=== PATIENT | male | born 1985 | race Caucasian/White ===

== ENCOUNTER → 2020-03-28 10:17 | Outpatient (CLI) | payer MEDICAID, SELFPAY ==
[2015-08-06 19:43] VITALS: BMI 31.5
[2020-03-28 11:32] LABS: AST(SGOT) 25 U/L (15-37); Alanine Aminotransfer ALT/SGPT 63 U/L (16-61); Albumin, Serum 3.8 g/dL (3.2-5.0); Alkaline Phosphatase 107 U/L (45-117); Anion Gap 5 (5-15); BUN 8 mg/dL (7-18); BUN/Creat Ratio 7.1 RATIO (10-20); Calcium,Total 8.6 mg/dL (8.5-10.1); Chloride 108 mmol/L (98-107); Cholesterol 185 mg/dL (200); Creatinine, Serum 1.12 mg/dL (0.70-1.30); EST Glomerular Filtration Rate 79 mL/min (>60); Est Glom Filt Rate - Afr Amer 95 mL/min (>60); Globulin 3.8 g/dL (2.2-4.2); Glucose 97 mg/dL (74-106); High Density Lipoprotein 33 mg/dL; Potassium 4.1 mmol/L (3.5-5.1); Protein, Total 7.6 g/dL (6.4-8.2); Sodium Level 140 mmol/L (136-145); Triglycerides 248 mg/dL; Very Low Density Lipoprotein 50 mg/dL (5-40)
== END ==
PROVIDERS: PCP Family Medicine; Visit Provider Family Medicine
DX: E66.9 Obesity, unspecified (principal)
CPT/HCPCS: 36415; 80053; 80061

== ENCOUNTER → 2020-05-28 16:54 | Outpatient (CLI) | payer MEDICAID, SELFPAY ==
[2015-08-06 19:43] VITALS: BMI 31.5
[2020-05-28 17:34] LABS: Absolute Lymphocyte Count 2.74 X10^3/uL (0.83-4.51); Absolute Neutrophil Count 6.1 X10^3/uL (2.0-7.7); Basophil# 0.05 X10^3/uL; Basophil% 0.5 % (0-1); Hematocrit 50.2 % (40-54); Hemoglobin 16.3 g/dL (13.0-16.5); Lymphocyte # 2.74 X10^3/ul (4.0); Lymphocyte % 27.7 % (19-41); Mean Corp Hgb Conc 32.5 g/dL (32-36); Mean Corpuscular Hgb 29.9 pg (27.0-32.0); Mean Corpuscular Volume 92.1 fL (80-94); Mean Platelet Vol. 9.6 fl (6.2-12.0); Monocyte# 0.97 X10^3/uL; Monocyte% 9.8 % (0-10); NRBC Flagged by Analyzer 0 % (0-5); Neutrophil # 6.12 X10^3/uL (2.7-7.7); Neutrophil % 61.8 % (47-70); Platelet Count 307 K/mm3 (150-450); RBC Distribution Width CV 12.5 % (11.6-14.6); RBC Distribution Width SD 42.5 fl (35.1-43.9); Red Blood Count 5.45 M/mm3 (4.6-6.2); White Blood Count 9.9 K/mm3 (4.4-11.0)
[2020-05-28 18:17] LABS: Ferritin 302 ng/mL (26-388); Magnesium 2.4 mg/dL (1.6-2.6)
== END ==
PROVIDERS: PCP Family Medicine; Referring Provider Family Medicine; Visit Provider Family Medicine
DX: R25.2 Cramp and spasm (principal)
CPT/HCPCS: 36415; 82728; 83735; 85025

== ENCOUNTER 2021-05-09 03:48 | Emergency (ER) | payer MEDICAID, SELFPAY ==
[2021-05-09 03:50] VITALS: BP 146/103; PULSE 55; RESP 16; TEMP 36.5; O2SAT 100; BMI 34.6
[2021-05-09] MEDS: Morphine 4 MG/ML Syringe IV (04:24)
[2021-05-09] MEDS: Ondansetron 4 MG/2 ML Vial IV (04:24)
[2021-05-09] MEDS: 0.9% Normal Saline 1,000 ML 999 ML IV (04:24)
[2021-05-09 04:35] LABS: Absolute Lymphocyte Count 1.68 X10^3/uL (0.83-4.51); Absolute Neutrophil Count 10.3 X10^3/uL (2.0-7.7); Basophil# 0.03 X10^3/uL; Basophil% 0.2 % (0-1); Eosinophil# 0.01 X10^3/uL; Eosinophils% 0.1 % (0-5); Hematocrit 47.7 % (40-54); Hemoglobin 16.6 g/dL (13.0-16.5); Lymphocyte # 1.68 X10^3/ul (0.83-4.51); Lymphocyte % 12.9 % (19-41); Mean Corp Hgb Conc 34.8 g/dL (32-36); Mean Corpuscular Hgb 31.1 pg (27.0-32.0); Mean Corpuscular Volume 89.3 fL (80-94); Mean Platelet Vol. 9.6 fl (6.2-12.0); Monocyte# 0.91 X10^3/uL; NRBC Flagged by Analyzer 0 % (0-5); Neutrophil # 10.34 X10^3/uL (2.7-7.7); Neutrophil % 79.2 % (47-70); Platelet Count 309 K/mm3 (150-450); RBC Distribution Width CV 12.6 % (11.6-14.6); RBC Distribution Width SD 41.5 fl (35.1-43.9); Red Blood Count 5.34 M/mm3 (4.6-6.2); White Blood Count 13.1 K/mm3 (4.4-11.0)
--- NOTE | 2021-05-09 04:36 | EX.ED.DYSGE1 ---
HPI History of Present Illness Chief Complaint: Back Narrative Narrative: Patient is a 35-year-old male who states he will occasionally deal with back pain/spasm. He states he can typically take a muscle relaxer and will feel better. He reports that this evening he was sitting around and noticed some irritation around 9 PM for which he took some ibuprofen. He states despite doing this a few hours later he had severe cramping and spasm of his back. He reports the irritation was more right-sided and wrapped around towards his abdomen but he did feel it bilaterally. He denies any recent trauma or excessive activity. He denies any loss of bowel or bladder control or IV drug use. He states that as he cannot get the symptoms under control at home he presents to the ER for evaluation [facility] Medical History no medical history no medical history Home Medications cetirizine 10 mg PO DAILY 05/09/21 [History Last Taken Unknown] ondansetron 4 mg PO TID PRN PRN #21 tab 05/09/21 [Rx Last Taken Unknown] oxycodone-acetaminophen [Percocet] 1 tab PO Q6H PRN 3 Days #12 tab 05/09/21 [Rx Last Taken Unknown] Allergy/AdvReac Type Severity Reaction Status Date / Time No Known Allergies Allergy Verified 05/09/21 03:49 Social History Smoking Status: Current every day smoker tobacco type: cigarettes ROS ROS ED Constitutional Constitutional ED: Denies chills or fever(s) ENT ENT ED: Denies sore throat Cardiovascular Cardiovascular: Denies chest pain Respiratory/Chest Respiratory/Chest: Denies cough or dyspnea Gastrointestinal Gastrointestinal: Reports abdominal pain and nausea; Denies diarrhea or vomiting Genitourinary Genitourinary ED: Denies dysuria or hematuria Musculoskeletal Musculoskeletal: Reports back pain; Denies myalgias Integumentary Denies rash Neurologic Neurologic: Denies headache(s) Hematologic/Lymphatic Hematologic/Lymphatic: Denies easy bleeding or easy bruising EXAM Physical Exam Const Vital Signs: 05/09/21 03:50 Temperature 97.7 F L Temperature Source Oral Pulse Rate 55 L Respiratory Rate 16 Blood Pressure 146/103 H Blood Pressure Mean 117 Pulse Ox 100 Oxygen Delivery Method Room Air Positive well nourished and well developed General Appearance ED: well developed HEENT Reports dry mucous membranes Mouth ED: Yes dry mucous membranes Mouth: dry mucous membranes Eyes PERRL and EOMs intact bilaterally General Eye ED: Negative for scleral icterus Neck supple Resp normal respiratory effort and clear to auscultation bilaterally Cardio regular rate and regular rhythm Rate: other Other Details: Radial pulses are +2-4 bilaterally are equal and symmetric GI non-distended GI Narrative: Obese soft and nondistended with normoactive bowel sounds. There is pain with palpation in the right upper quadrant but negative Welch sign or voluntary guarding. No pulsatile mass Auscultation: normoactive bowel sounds Palpation: soft Back/Spine no CVA tenderness Back/Spine Narrative: No bony deformity or step-off of the thoracic or lumbar spine no midline pain with palpation. No saddle anesthesia. Negative straight leg raise. No clonus or Babinski. Patellar reflexes are +3-4 bilaterally Extremity normal to inspection Neuro oriented x3 and CN's II-XII intact bilaterally Sensorium / Orientation: alert Motor Exam: strength 5/5 throughout Psych mental status grossly normal Skin no rashes or lesions noted General Skin Exam: Negative for jaundice MDM MDM MDM Narrative Medical decision making narrative: Patient presented to the ER hypertensive which I felt was from pain and otherwise afebrile. He reported pain in his back but on exam had more pain in the abdomen in the right upper quadrant and also stated that it seemed to wrap around to his back. There is concerned this could be possible kidney stone but he did not have CVA pain with palpation and he reported that the symptoms began a few hours after eating a large meal of macaroni and cheese and hot dogs. I was concerned this was more biliary colic in nature and therefore ordered basic abdominal laboratory studies. Patient's white count was slightly elevated at 13 but otherwise he had normal liver enzymes and lipase. His urine showed trace amount of blood and urobilinogen. Because of the elevated white count and pain he did elect to perform a CT scan of his abdomen to rule out acute pathology. The CT scan confirmed a gallstone without surrounding inflammatory changes to suggest acute cholecystitis. Patient was medicated with IV fluids morphine and Dilaudid and did have resolution of his pain. Therefore at this time as history and exam is confirming cholelithiasis but there is no secondary infectious process or acute gallstone pancreatitis from this there is no need for admission and patient can have this further worked up on an outpatient basis. Lab Data Attestation: I reviewed the patient's lab results. Labs: Laboratory Results - last 24 hr 05/09/21 05/09/21 05/09/21 04:20 04:20 04:20 WBC 13.1 H RBC 5.34 Hgb 16.6 H Hct 47.7 MCV 89.3 MCH 31.1 MCHC 34.8 RDW Std Deviation 41.5 RDW Coeff of Shanta 12.6 Plt Count 309 MPV 9.6 Immature Gran % (Auto) 0.600 Neut % (Auto) 79.2 H Lymph % (Auto) 12.9 L Spencer % (Auto) 7.0 Eos % (Auto) 0.1 Baso % (Auto) 0.2 Absolute Neuts (auto) 10.3 H Absolute Lymphs (auto) 1.68 Nucleated RBC % 0 Sodium 139 Potassium 4.8 Chloride 107 Carbon Dioxide 29.0 Anion Gap 3 L BUN 10 Creatinine 1.18 Estim Creat Clear Calc 91.29 Est GFR (MDRD) Af Amer 89 Est GFR (MDRD) Non-Af 73 BUN/Creatinine Ratio 8.5 L Glucose 127 H Calcium 9.2 Total Bilirubin 0.30 Direct Bilirubin 0.10 AST 26 ALT 46 Alkaline Phosphatase 100 Total Protein 7.4 Albumin 3.7 Globulin 3.7 Lipase 82 Urine Color Yellow Urine Clarity Clear Urine pH 7.0 Ur Specific [place] 1.015 Urine Protein 30 H Urine Glucose (UA) Normal Urine Ketones 5 H Urine Occult Blood 10 H Urine Nitrite Negative Urine Bilirubin Negative Urine Urobilinogen 1 H Ur Leukocyte Esterase 25 H Urine RBC 0 SEEN Urine WBC 0-5 SEEN Ur Squamous Epith Cells 0 SEEN Urine Bacteria 0 SEEN Urine Mucus 0 SEEN Radiography Diagnostic Testing: Clinical Impression(s) from Imaging Studies Abdomen/Pelvis CT 05/09/21 05:08 IMPRESSION: 1. Gallstone in the neck of the gallbladder. No bile duct dilatation. 2. Mild fatty infiltration of the liver. Electronically Signed: Jacques Coronel MD at 5:59 EDT , Discharge Plan Triage Chief Complaint: Back ED Provider: Baudilio York Dx/Rx/DC Orders Clinical Impression: Biliary colic, Cholelithiasis Instructions: Treating Gallstones, ED Gallstones with Biliary Colic Prescriptions: New oxycodone-acetaminophen [Percocet] 5-325 mg tablet 1 tab PO Q6H PRN (Reason: pain) 3 Days Qty: 12 RF: 0 ondansetron 4 mg tablet,disintegrating 4 mg PO TID PRN PRN (Reason: nausea and vomiting) Qty: 21 RF: 0 No Action cetirizine 10 mg tablet 10 mg PO DAILY RF: 0 Primary Care Provider: Ricco Garay Referrals: Herman Mckeon MD [STAFF PHYSICIAN] - 5-7 Days Ricco Garay MD [Primary Care Provider] - Activity Restrictions/Additional Instructions: Please eat more frequent smaller meals and stay away from any type of greasy/fatty foods to reduce bouts of pain from your gallbladder. Please follow-up with general surgery to discuss need for ultrasound and/or HIDA scan and possible gallbladder removal Disposition Disposition: Home, Self Care
[2021-05-09 04:40] LABS: Bacteria 0 SEEN /hpf (None Seen); Mucous, Urine 0 SEEN /hpf (<or=2+); Red Blood Cells-Urine 0 SEEN /hpf (0-5); Squamous Epithelial Cells - UA 0 SEEN /hpf (0-5)
[2021-05-09 04:42] LABS: AST(SGOT) 26 U/L (15-37); Alanine Aminotransfer ALT/SGPT 46 U/L (16-61); Albumin, Serum 3.7 g/dL (3.2-5.0); Alkaline Phosphatase 100 U/L (45-117); Anion Gap 3 (5-15); BUN 10 mg/dL (7-18); BUN/Creat Ratio 8.5 RATIO (10-20); Calcium,Total 9.2 mg/dL (8.5-10.1); Chloride 107 mmol/L (98-107); Creatinine, Serum 1.18 mg/dL (0.70-1.30); EST Glomerular Filtration Rate 73 mL/min (>60); Est Glom Filt Rate - Afr Amer 89 mL/min (>60); Estimated Creatinine Clearance 91.29 ml/min; Globulin 3.7 g/dL (2.2-4.2); Glucose 127 mg/dL (74-106); Lipase 82 U/L (73-393); Potassium 4.8 mmol/L (3.5-5.1); Protein, Total 7.4 g/dL (6.4-8.2); Sodium Level 139 mmol/L (136-145)
[2021-05-09 04:47] LABS: Color, Urine Yellow (Yellow); Glucose, Dipstick Normal (Normal); Ketone-Dipstick 5 mg/dl (Negative); Leukocyte Esterase-Dipstick 25 /ul (Negative); Nitrite-Dipstick Negative (Negative); Occult Blood-Urine 10 /ul (Negative); Protein-Dipstick 30 mg/dl (Negative); Specific Gravity, Urine 1.015 (1.002-1.030); Urine Bilirubin Dipstick Negative (Negative); Urine Clarity Clear (Clear); Urine Urobilinogen 1 mg/dl (Normal)
[2021-05-09 04:58] LABS: White Blood Cells 0-5 SEEN /hpf (0-5)
--- NOTE | 2021-05-09 05:08 | CT_ITS ---
EXAM: CT ABDOMEN AND PELVIS WITH INTRAVENOUS CONTRAST CLINICAL INDICATION: RUQ pain RUQ pain TECHNIQUE: Helically acquired images were obtained of the abdomen and pelvis with intravenous contrast. This CT exam was performed using one or more of the following dose reduction techniques: automated exposure control, adjustment of the mA and/or kV according to patient size, and/or use of iterative reconstruction technique. This report was created using [employer] report generation technology. CONTRAST: IV 100mL Isovue-300 COMPARISON: None. FINDINGS: LOWER THORAX: Unremarkable. Lung bases are clear. No cardiomegaly. No significant pericardial effusion. ABDOMEN: LIVER: There is fatty infiltration of the liver. GALLBLADDER AND BILE DUCTS: There is a 1.9 cm calcified gallstone in the neck of the gallbladder. No gallbladder distention or wall edema. No intra- or extrahepatic biliary ductal dilation. PANCREAS: Unremarkable. No focal cystic or solid mass. SPLEEN: Unremarkable. Normal size without focal cystic or solid mass. ADRENALS: Unremarkable. No nodules. KIDNEYS AND URETERS: There is a small left upper pole renal cortical cyst which is too small to reliably characterize. No follow-up imaging is necessary for simple renal cysts or cysts that are too small to characterize. Normal renal size and position. No hydronephrosis. STOMACH AND BOWEL: Unremarkable. No stomach or bowel distention. No focal inflammatory change. PELVIS: APPENDIX: The appendix is seen on axial images 90-96 and it appears normal. BLADDER: Unremarkable. REPRODUCTIVE: Unremarkable as visualized. No mass. ABDOMEN and PELVIS: INTRAPERITONEAL SPACE: Unremarkable. No ascites or other fluid collection. No free air. BONES/JOINTS: There are mild multilevel degenerative changes in the visualized spine. No suspicious lytic or blastic abnormality. SOFT TISSUES: Unremarkable. No discrete abdominal or pelvic wall hernia. VASCULATURE: Unremarkable. Abdominal aorta is non-dilated. LYMPH NODES: Unremarkable. No enlarged lymph nodes. CT/Abdomen/Pelvis W IV Cont ONLY IMPRESSION: 1. Gallstone in the neck of the gallbladder. No bile duct dilatation. 2. Mild fatty infiltration of the liver. Electronically Signed: Jacques Coronel MD at 5:59 EDT Reading Location ID and State: [facility] / [place] , Service support ,
[2021-05-09] MEDS: HYDROmorphone 0.5 MG/0.5 ML SYRINGE IV (05:34)
[2021-05-09 06:16] VITALS: BP 134/78; PULSE 50; RESP 17; O2SAT 99
== END 2021-05-09 06:26 | disposition home or self-care (01) ==
PROVIDERS: Emergency Provider Emergency Medicine; PCP Family Medicine; Visit Provider Emergency Medicine
DX: K80.70 Calculus of gallbladder and bile duct without cholecystitis without obstruction (principal); M54.9 Dorsalgia, unspecified; F17.210 Nicotine dependence, cigarettes, uncomplicated; D72.829 Elevated white blood cell count, unspecified
CPT/HCPCS: 74177; 80048; 80076; 81001; 83690; 85025; 96361; 96374; 96375; 99283; J7030; Q9967; A4216; J2405

== ENCOUNTER → 2022-01-25 | Outpatient (CLI) | payer MEDICAID, SELFPAY ==
[2022-01-25 12:58] LABS: Vitamin D,25 Hydroxy 13.4 ng/mL
[2022-01-25 13:47] LABS: Anion Gap 7 (5-15); BUN 12 mg/dL (7-18); BUN/Creat Ratio 11.3 RATIO (10-20); Calcium,Total 9.2 mg/dL (8.5-10.1); Chloride 107 mmol/L (98-107); Cholesterol 267 mg/dL (200); Creatinine, Serum 1.06 mg/dL (0.70-1.30); EST Glomerular Filtration Rate 83 mL/min (>60); Est Glom Filt Rate - Afr Amer 100 mL/min (>60); Glucose 96 mg/dL (74-106); High Density Lipoprotein 32 mg/dL; Potassium 4.6 mmol/L (3.5-5.1); Sodium Level 141 mmol/L (136-145); Thyroid Stim Hormone (TSH) 1.08 uIU/mL (0.358-3.74); Triglycerides 588 mg/dL
== END | disposition home or self-care (01) ==
LOC: MFPLAB 10:05
PROVIDERS: PCP Family Medicine; Referring Provider Family Medicine; Visit Provider Family Medicine
DX: Z00.00 Encounter for general adult medical examination without abnormal findings (principal)
CPT/HCPCS: 36415; 80048; 80061; 82306; 84403; 84443

== ENCOUNTER 2024-09-24 17:39 | Emergency (ER) | payer OTHER, SELFPAY ==
[2024-09-24 17:39] VITALS: BP 147/86; PULSE 86; RESP 17; TEMP 36.6; O2SAT 99; BMI 32.7
--- NOTE | 2024-09-24 18:32 | EDS_ITS ---
HPI History of Present Illness Chief Complaint: Laceration Informant: patient Narrative Narrative: Patient is a 39-year-old [id number] male presenting with laceration to his left index finger. Patient was using a multitool knife to cut tubing when the knife slipped and cut the lateral proximal aspect of his left index finger. He denies any associate numbness or tingling. Came in for further evaluation and likely stitches. Denies difficulty moving his finger. No other injuries. No other complaints or concerns at this time. Is not on any blood thinners. Tetanus Immunization: >10 years PFSH PFS Home Medications ?Medication ?Instructions ?Recorded ?Last Taken ?Type cetirizine 10 mg tablet 10 mg PO DAILY 05/09/21 Unkn own History ondansetron 4 mg disintegrating 4 mg PO TID PRN PRN na usea and 05/09/21 Unknown Rx tablet vomiting #21 tabs oxycodone-acetaminophen 5 mg-325 1 tab PO Q6H PRN pain 3 days #12 05/09/21 Unknown Rx mg tablet (Percocet) tabs Allergy/AdvReac Type Severity Reaction Status Date / Time No Known Allergies Allergy Verified 09/24/24 17:41 Surgical History History of cholecystectomy Social History Smoking Status: Heavy Smoker (>10/day) [facility] ED Constitutional Constitutional ED: Denies chills or fever(s) Musculoskeletal Musculoskeletal: Reports other Details: Left index finger pain Integumentary Reports other Details: Laceration to left index finger Neurologic Neurologic: Denies paresthesias or weakness Hematologic/Lymphatic Hematologic/Lymphatic: Denies easy bleeding or easy bruising EXAM Physical Exam Const Vital Signs: 09/24/24 17:39 09/24/24 20:00 09/24/24 20:00 Temperature 97.8 F 98 F Temperature Source Oral Pulse Rate 86 70 71 Respiratory Rate 17 18 18 Blood Pressure 147/86 H 144/96 H 144/96 H Blood Pressure Mean 106 112 112 Pulse Ox 99 98 98 Oxygen Delivery Method Room Air Room Air Positive well nourished and well developed General Appearance ED: well developed HEENT atraumatic Resp normal respiratory effort Cardio regular rhythm Cardio Narrative: 2+ radial pulses Rate: regular rate Extremity Extremity Narrative: Normal movement of the fingers specifically the left index finger. Normal flexion and extension. Neuro oriented x3, moves all extremities, no focal motor deficits and no sensory deficits noted Psych mental status grossly normal Skin Skin Narrative: 5 cm semicircular laceration to the radial aspect of the left finger along the proximal phalanges. Is laceration is full-thickness. It is flap. No active bleeding at this time. PROC Procedures Lacerations left index finger : Length: 1.97 in Depth: Skin Shape: Flap Prep: Chlorhexadine Laceration repair: Digital block, Irrigated, Local, Skin sutures and Wound explored Irrigated (ml): 999 Number of Sutures/[place]: 5 Suture Information: Ethilon, Simple and 4-0 Comment: Irrigated under running tap water for at least 2 minutes. Irrigated further with saline and then chlorhexidine wash. MDM MDM MDM Narrative Medical decision making narrative: Patient Preciado for laceration to his left index finger. Differential includes laceration, foreign body, tendon injury or fracture. Given mechanism of injury low suspicion for retained foreign body do not think requires an x-ray. He has normal movement and sensation of the finger so low suspicion for tendon injury or significant nerve injury. Bleeding is controlled. Suture repair performed. Tetanus is updated. Patient given wound care precautions Discharge Plan Triage Chief Complaint: Laceration ED Provider: Dai Calabrese Dx/Rx/DC Orders Clinical Impression: Laceration of left index finger, Need for [id number] (Tdap) vaccine Instructions: ED Laceration, Hand: All Closures Prescriptions: No Action cetirizine 10 mg tablet 10 mg PO DAILY Patient Comments: take 1 tablet by mouth once daily oxycodone-acetaminophen [Percocet] 5-325 mg tablet 1 tab PO Q6H PRN (Reason: pain) 3 Days Qty: 12 0RF ondansetron 4 mg tablet,disintegrating 4 mg PO TID PRN PRN (Reason: nausea and vomiting) Qty: 21 0RF Primary Care Provider: Evert Vidal Referrals: Evert Vidal MD [Primary Care Provider] - Activity Restrictions/Additional Instructions: Sutures need to be removed and approximately 10 days. For the next 48 hours please try to keep the wounds dry. Print Language: Swedish Disposition Disposition: Home, Self Care Discharge Date/Time: 09/24/24 20:17
[2024-09-24] MEDS: Lidocaine 1% (20 ml mdv) 20 ML Vial INFILT (18:36)
[2024-09-24 20:00] VITALS: BP 144/96; PULSE 70; PULSE 71; RESP 18; TEMP 36.6; O2SAT 98
== END 2024-09-24 20:17 | disposition home or self-care (01) ==
PROVIDERS: Emergency Provider Emergency Medicine; PCP Family Medicine; Visit Provider Emergency Medicine
DX: S61.211A Laceration without foreign body of left index finger without damage to nail, initial encounter (principal); W26.0XXA Contact with knife, initial encounter; Y93.89 Activity, other specified; F17.200 Nicotine dependence, unspecified, uncomplicated; Z90.49 Acquired absence of other specified parts of digestive tract; Z23 Encounter for immunization
CPT/HCPCS: 12002; 90471; 90715; 99283

== ENCOUNTER → 2025-01-24 | Outpatient (CLI) | payer OTHER, SELFPAY ==
[2025-01-24 10:19] LABS: Anion Gap 10 (5-15); BUN 11 mg/dL (4-19); BUN/Creat Ratio 10.1 RATIO (10-20); Calcium,Total 8.7 mg/dL (7.6-11.0); Carbon Dioxide 25.8 mmol/L (21.0-32.0); Chloride 105 mmol/L (98-108); Glucose 95 mg/dL (70-99); Potassium 4.4 mmol/L (3.3-5.1)
[2025-01-24 12:37] LABS: Cholesterol 198 mg/dL (<=200); Low Density Lipoprotein Calc. 130 mg/dL; Triglycerides 207 mg/dL; Very Low Density Lipoprotein 41 mg/dL (5-40); cholesterol:hdl ratio screen 6.43
== END | disposition home or self-care (01) ==
PROVIDERS: PCP Family Medicine; Referring Provider Family Medicine; Visit Provider Family Medicine
DX: Z00.00 Encounter for general adult medical examination without abnormal findings (principal)
CPT/HCPCS: 36415; 80048; 80061